=== PATIENT | male | born 1945 | race African-American/Black ===

== ENCOUNTER 2024-12-01 17:05 | Inpatient (IN) | payer OTHER, SELFPAY ==
[2024-12-01] VITALS (7 sets, daily range): BP systolic 127–142; BP diastolic 67–85; PULSE 90–107; BMI 23.5; BMI 22.3
[2024-12-01] MEDS: OMNIPAQUE 50 ML PO (12:04)
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
[2024-12-01 12:39] LABS: % Basophils 0.1 % (0-2); % Eosinophils 2.3 % (0-6); % Immature Granulocytes 0.3 % (0-0.5); % Lymphocytes 24.1 % (20.5-51.1); % Monocytes 7.4 % (1.7-9.3); % Neutrophils 65.8 % (42.2-75.2); Absolute Eosinophils 0.2 10^3/uL (0-0.7); Absolute Lymphocytes 2.2 10^3/uL (1.2-3.4); Absolute Monocytes 0.7 10^3/uL (0.1-0.6); Hemoglobin 11.2 g/dL (13.0-18.0); Mean Corp Hgb Conc. 32.9 g/dL (33.0-37.0); Mean Corpuscular Hgb 27.9 pg (27.0-31.0); Mean Corpuscular Volume 84.6 fL (80.0-94.0); Mean Platelet Volume 10.9 fL (7.4-10.4); Nucleated Red Blood Cells % 0 % (-); Platelet Count 237 10^3/uL (130-400); Red Blood Cell Count 4.02 10^6/uL (4.70-6.10); Red Cell Dist. Width 12.9 % (11.5-14.5); White Blood Cell Count 9.1 10^3/uL (4.8-10.8)
[2024-12-01 12:48] LABS: ALT (SGPT) 17 U/L (0-50); AST (SGOT) 26 U/L (17-59); Albumin 4.4 g/dl (3.5-5.0); Alkaline Phosphatase 94 U/L (38-126); Blood Urea Nitrogen 31 mg/dl (9-20); Calcium 10.4 mg/dl (8.4-10.2); Carbon Dioxide 22 mmol/L (22-30); Chloride 109 mmol/L (98-107); Estimated Creatinine Clearance 26 ml/min; Glucose 94 mg/dl (70-99); Lipase 201 U/L (23-300); Potassium 4.8 mmol/L (3.5-5.1); Sodium 142 mmol/L (135-145); Total Bilirubin 0.6 mg/dl (0.2-1.3); Total Protein 7.7 g/dl (6.3-8.2)
[2024-12-01 13:06] LABS: APTT 28.8 Sec (23.4-35.0); INR 0.95; PT 13.1 Sec (11.4-14.6)
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
--- NOTE | 2024-12-01 19:13 | PTCARENOTE ---
Received pt from ED, kevin TAPIA on tele, AAOx3, pt ambulated from stretcher to bed with assistance of a SP cane on the right side for a left sided deficit, assessment and admission complete, pt oriented to call barlow and room, pt resting comfortably
in bed at this time.
[2024-12-01 20:27] LABS: Hematocrit 34.1 % (39.0-52.0); Hemoglobin 11.5 g/dL (13.0-18.0)
[2024-12-01] MEDS: NSS 1000 IV (20:45)
[2024-12-01] MEDS: ZOSYN 50 IV (20:45)
[2024-12-01] MEDS: NULYTELY SOLUTION 4 LITERS PO (20:46)
[2024-12-02] VITALS (8 sets, daily range): BP systolic 15–129; BP diastolic 64–78; PULSE 82–109
[2024-12-02] MEDS: ZOSYN 50 IV ×3 (03:06→14:46)
[2024-12-02 06:52] LABS: Hematocrit 31.1 % (39.0-52.0); Hemoglobin 10.6 g/dL (13.0-18.0); Mean Corp Hgb Conc. 34.1 g/dL (33.0-37.0); Mean Corpuscular Hgb 28.6 pg (27.0-31.0); Mean Corpuscular Volume 84.1 fL (80.0-94.0); Mean Platelet Volume 11.1 fL (7.4-10.4); Platelet Count 217 10^3/uL (130-400); Red Cell Dist. Width 12.7 % (11.5-14.5); White Blood Cell Count 8.3 10^3/uL (4.8-10.8)
[2024-12-02 07:14] LABS: Blood Urea Nitrogen 25 mg/dl (9-20); Calcium 9.8 mg/dl (8.4-10.2); Carbon Dioxide 22 mmol/L (22-30); Chloride 106 mmol/L (98-107); Estimated Creatinine Clearance 25 ml/min; Glucose 99 mg/dl (70-99); Potassium 4.5 mmol/L (3.5-5.1); Sodium 138 mmol/L (135-145)
[2024-12-02] MEDS: PROTONIX IV 40 MG IV (08:25)
[2024-12-02] MEDS: NSS (PRESERVATIVE FREE) 10 ML IV (08:25)
[2024-12-02] MEDS: ZYLOPRIM 100 MG PO (08:25)
[2024-12-02] MEDS: DULCOLAX 10 MG PO (08:26)
--- NOTE | 2024-12-02 08:38 | W.PN.HOSP.TC ---
Addendum entered and electronically signed by Janeth Shirley MD 12/02/24 17:10:
Addendum
Patient had colonoscopy, he had diet with no issues. Patient does not want to stay in the hospital overnight. GI doctor was contacted and was okay to discharge.
Discussed with patient regarding abnormal renal function, creatinine around 1.9 which seemed his baseline. 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 Patient remained hemodynamically stable
Total discharge time spent to see the patient, examine the patient, review data and lab result, discuss discharge plan with patient, nursing staff around 65 minutes
Original Note:
Today's Communication/Plan
-
f/w GI recommendations
ok to resume amlodipine
Aspirin in am
Assessment / Plan
Assessment / Plan
Physical Exam
General: Well Developed, Well Nourished and No Apparent Distress
HEENT: NormoCephalic, Moist mucous membranes and Atraumatic
Respiratory: Clear
Cardiac: S1/S2
GI: Soft, Non Tender, Non Distended and Normal Bowel Sounds.
Musculoskeletal: No Clubbing, No Cyanosis and No Edema
Skin: No Rash
Neuro: Nonfocal/grossly intact
Psych: calm
# Acute blood loss anemia due to lower GI bleeding
NEG CTA for active bleeding
CTA: Wall thickening at the rectosigmoid junction may be secondary to a proctocolitis
DDX: Infective, IBD, HX Diverticulosis
No abdominal pain
No fever
No leukocytosis
- ok to resume aspirin after scope
- IVF and NPO except sips
- Empiric IV Zosyn
- T & S, blood consented
- GI consulted;
DELMI on CKD3b
Hold diuretic & Losartan
Benign HTN
-Resume amlodipine,
Holding chlorthalidone , losartan due to DELMI
HLD
Total time spent to see the patient, examine the patient, review data and lab result, discuss treatment plan with patient, nursing staff around 55 minutes
Anticipated Discharge: 24 - 48 hours
Subjective/Interval History
-
Date of Service: December 02, 2024
No abd pain
No chest pain
Objective Data
-
Labs:
Laboratory Results
12/02/24
06:03
WBC 8.3
Hgb 10.6 L
Hct 31.1 L
Plt Count 217
Sodium 138
Potassium 4.5
Chloride 106
Carbon Dioxide 22
BUN 25 H
Creatinine 1.9 H
Glucose 99
Calcium 9.8
Vital Signs:
Vital Signs
Temp Pulse Resp BP Pulse Ox
97.8 F 91 16 127/71 98
12/02/24 07:32 12/02/24 03:25 12/02/24 03:25 12/02/24 03:25 12/02/24 03:25
I&O
12/01/24 12/02/24 12/03/24
06:59 06:59 06:59
Intake Total 150 / 150 3219 / 3219
Balance 150 / 150 3219 / 3219
--- NOTE | 2024-12-02 09:51 | CM ---
Reviewed the chart notes and spoke with the patient at the bedside. The patient resides with his brother in a one story home with two steps to enter. The patient reports using a cane with ambulation. The patient has had [facility] in the past,
but no SNF history. The patient confirmed his pharmacy of choice is the [email or web address]. CM continues to be available to patient/family and is monitoring medical plan for needs at discharge.
Plan: Discharge to home when medically stable. No needs anticipated at this time.
[2024-12-02] MEDS: NSS IV (13:00)
--- NOTE | 2024-12-02 15:24 | PTCARENOTE ---
Received pt back from PACU, VSS, pt resting comfortably in bed at this time.
[2024-12-02] MEDS: FLOMAX 0.4 MG PO (17:06)
--- NOTE | 2024-12-02 17:06 | W.DCSUMMARY ---
Discharge Summary
Discharge Data
Date of Admission: 12/01/24
Date of Discharge: 12/02/24
-
Pending Results: No
Hospital Course
79 years old male presented with history of rectal bleeding. Patient was found to have mild anemia with hemoglobin around 11. Hemoglobin dropped down to 10. Patient did not have active rectal bleeding in the hospital. He did not have abdominal
pain. Patient was evaluated by gastroenterology. Patient received bowel preparation for colonoscopy. Colonoscopy showed diverticulosis with evidence of old blood, no active bleeding. After colonoscopy, patient was started on low residue diet.
He tolerated diet well. Patient did not need blood transfusion. Patient reported history of chronic kidney disease. Creatinine was around 1.9 which seem to be chronic per patient. Patient did not want to stay another night in the hospital and
wanted to go home to follow-up with his doctors in outpatient setting. He remained hemodynamically stable. Patient was discharged in a stable condition.
Discharge Plan
-
Patient Disposition: Home (Routine Discharge)
Discharge Diagnosis/Procedures: GI bleeding, suspect secondary to diverticular bleed. You did not need blood transfusion. Rectal bleeding stopped. Status post colonoscopy
- Chronic kidney disease stage IIIb, your creatinine was 1.9.. 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
Condition: Fair
Diet: As tolerated and Low Residue
Referrals:
Shelby Horn, DO [Family Provider] - in one to two weeks
Prescriptions:
Continued
pravastatin 20 MG tablet
20 mg PO QPM
aspirin 81 mg Tablet,Delayed Release (Dr/Ec)
81 mg PO DAILY
chlorthalidone 25 mg Tablet
12.5 mg PO DAILY
ascorbic acid (vitamin C) [Vitamin C] 500 mg Tablet
500 mg PO DAILY
tamsulosin [Flomax] 0.4 mg Capsule
0.4 mg PO QPM
amlodipine [Norvasc] 10 mg Tablet
10 mg PO DAILY
losartan 25 mg Tablet
25 mg PO DAILY
allopurinol 300 mg Tablet
300 mg PO DAILY
multivit with min-folic acid 80 mcg Tablet,Chewable
1 tab PO DAILY
Discharge Orders:
Discharge Patient (As Directed); Ordered 12/02/24
Ordered By: Janeth Shirley
Discharge Date and Time
Print Language: UKRAINIAN
== END 2024-12-02 18:42 | disposition home or self-care (01) | DRG 378 ==
LOC: 2 NORTH 17:05
PROVIDERS: Nurse Practitioner Family; Physician Assistant Medical; ADMITTING PHYSICIAN Internal Medicine; ATTENDING PHYSICIAN Internal Medicine; CONSULT PHYSICIAN Internal Medicine Gastroenterology; EMERGENCY PHYSICIAN Student in an Organized Health Care Education/Training Program; FAMILY PHYSICIAN Internal Medicine
PROC: 0DJD8ZZ Inspection of Lower Intestinal Tract, Via Natural or Artificial Opening Endoscopic (ICD-10-PCS; 2024-12-02)
DX: K57.31 Diverticulosis of large intestine without perforation or abscess with bleeding (principal); D62 Acute posthemorrhagic anemia; N17.9 Acute kidney failure, unspecified; K64.8 Other hemorrhoids; N18.32 Chronic kidney disease, stage 3b; I12.9 Hypertensive chronic kidney disease with stage 1 through stage 4 chronic kidney disease, or unspecified chronic kidney disease; E78.00 Pure hypercholesterolemia, unspecified; N40.0 Benign prostatic hyperplasia without lower urinary tract symptoms; Z79.82 Long term (current) use of aspirin; Z79.899 Other long term (current) drug therapy; Z95.820 Peripheral vascular angioplasty status with implants and grafts
CPT/HCPCS: 74174; 80048; 80053; 83690; 85014; 85018; 85025; 85027; 85610; 85730; 86850; 86900; 86901; 99284; Q9967